=== PATIENT | female | born 1955 | race Caucasian/White ===

== ENCOUNTER → 2021-09-07 12:00 | Outpatient (CLI) | payer MEDICARE, SELFPAY | PROVIDERS: PCP Family Medicine; Visit Provider Specialist | DX: G47.09 Other insomnia (principal); G47.30 Sleep apnea, unspecified; R06.83 Snoring | CPT/HCPCS: G0399 ==

== ENCOUNTER 2025-02-18 07:59 | Day surgery (SDC) | payer MEDICARE, OTHER, SELFPAY ==
[2025-02-11 09:19] VITALS: BMI 31.4
--- NOTE | 2025-02-11 16:28 | EXP.HP ---
History of Present Illness *Admission Date: 02/18/25 *History of present illness: Mrs. Stern is a 69-year-old female who is here for diagnostic colonoscopy. Several months ago, she did develop increased bowel urgency and diarrhea with change in bowel habits. This improved some but did not resolve. She has had a lot of gassiness and bloating with some belching. Her PCR microbial panel was negative. Her pancreatic fecal elastase testing was normal at 627 mcg/g. She was given probiotic (Align) and FiberCon 1 tablet daily. She was also prescribed Xifaxan and dicyclomine. Xifaxan was cost prohibitive so she did take a round of doxycycline. None of this provided complete resolution. She did have a colonoscopy with ut in February 2019 that was normal. The patient also had a normal CAT scan of the abdomen and pelvis in March 2019. The examination is deemed medically necessary for diagnostic colonoscopy. The patient has been seen, interviewed and examined prior to the procedure by both myself and the anesthesia provider. [facility] Disclaimer: The information contained in this section may have been updated after the patient was seen, as this information can be updated by other users. Medical History Functional dyspepsia Irritable bowel syndrome with diarrhea GERD (gastroesophageal reflux disease) Surgical History No pertinent past surgical history Family History Mother Breast cancer Social History (Updated 02/18/25 @ 09:20 by Saeid Mann CRNA) Smoking Status: Never smoker alcohol intake: current alcohol intake frequency: holidays/special occasions only substance use type: denies use current occupational status: retired Travel in the last 8 weeks?: Inside the [place] household members: spouse housing: house Have you lived/traveled outside [place] in past 30 days?: No Contact w/someone who lives/traveled outside [place] past 30 days?: No Exposure to someone with infectious disease in past 14 days?: No Do you have a fever (greater than 100.4 F or 38 C)?: No Have you tested positive for COVID-19?: No Exposed to someone with COVID-19 in past 14 days?: No Do you have a sore throat?: No Do you have a cough?: No Do you have any weakness?: No Are you experiencing any nausea/vomitting?: No Do you have any diarrhea?: No Are you experiencing any unusual bleeding?: No Do you have any muscle aches/pain?: No Do you have any abdominal pain?: No Are you experiencing loss of taste or smell?: No Other Medical History Have you received the Pneumonia Vaccine: Yes Review of Systems Review of Systems Review of systems (narrative): Negative *Cardiovascular Comments: Negative *Gastrointestinal Comments: Negative *Genitourinary Comments: Negative *Musculoskeletal Comments: Negative *Neurologic Comments: Negative Meds Home Medications and Allergies Home Medications ?Medication ?Instructions ?Recorded ?Confirmed ?Type calcium polycarbophil 625 mg 1,250 mg PO DAILY 08/09/21 02/18/25 History tablet (FiberCon) omeprazole 40 mg capsule,delayed 40 mg PO DAILY 08/09/21 02/18/25 History release pravastatin 40 mg tablet 40 mg PO DAILY 03/04/24 02/18/25 History raloxifene 60 mg tablet (Evista) 60 mg PO DAILY 03/04/24 02/18/25 History dicyclomine 10 mg capsule 10 mg PO QID PRN abd pain/urgency 09/09/24 02/18/25 Rx #120 caps loratadine 10 mg tablet 10 mg PO DAILY 09/09/24 02/18/25 History cholecalciferol (vitamin D3) 25 25 mcg PO DAILY 11/03/24 02/18/25 History mcg (1,000 unit) capsule escitalopram oxalate 5 mg tablet 10 mg PO DAILY 11/03/24 02/18/25 History sodium,potassium,mag sulfates 17.5 See Rx Instructions PO .COMPLEX 02/06/25 02/11/25 Rx gram-3.13 gram-1.6 gram oral soln #354 mL (Suprep Bowel Prep Kit) New Prescriptions to Start Prescriptions: Allergies Allergy/AdvReac Type Severity Reaction Status Date / Time No Known Allergies Allergy Verified 02/18/25 08:37 Exam Data for Last 24 hours I & O for Last 24 hours: Intake & Output 02/08/25 02/09/25 02/10/25 02/11/25 23:59 23:59 23:59 23:59 Weight 195 lb *Routine HEENT Exam Head: Present normocephalic Eye: Present EOMI and PERRL ENT: Present mucous membranes moist *Routine Neck Exam Neck: Present supple *Routine Respiratory Exam Respiratory: Present CTA bilaterally *Routine Cardiovascular Exam Cardiovascular: Present RRR *Routine Abdominal Exam Abdominal: Present soft and normoactive bowel sounds; Absent tenderness *Routine Rectal Exam Rectal:: deferred *Routine Genitalia Exam Genitalia:: deferred *Routine Extremities Exam Extremities: Absent cyanosis, clubbing or edema *Routine Skin Exam Skin: Present warm; Absent rash *Routine Neurological Exam Neurological: Present alert and oriented X3 Assessment and Plan *Assessment and plan (1) Change in bowel function: Status: Acute Category: Medical Code(s): R19.8 - Other specified symptoms and signs involving the digestive system and abdomen (2) Fecal urgency: Status: Acute Category: Medical Code(s): R15.2 - Fecal urgency (3) Diarrhea: Status: Acute Category: Medical Code(s): R19.7 - Diarrhea, unspecified (4) Bloating: Status: Acute Category: Medical Code(s): R14.0 - Abdominal distension (gaseous) Plan A/P: 1. Change in bowel habits with diarrhea, fecal urgency and bloating is the preprocedural diagnosis. The patient will be anesthetized/sedated using MAC sedation. The patient has been seen and examined. Cardiac and lung assessment prior to the examination is stable. Proceed with planned diagnostic colonoscopy.
--- NOTE | 2025-02-18 07:02 | HMH.PROCNOTE ---
[facility] Procedure Note Date: 02/18/25 Time: 09:42 Procedure Note:: Colonoscopy Procedure Report: Colonoscopy with cold snare polypectomy and cold biopsies Endoscopist: Johnathan Palacio II, MD Referring physician: Willa Mccarty MD Date of Procedure: February 18, 2025 Equipment: Olympus [id number] adult colonoscope Sedation: MAC sedation Indication: Mrs. Stern is a 69-year-old female who is here for diagnostic colonoscopy. Several months ago, she did develop increased bowel urgency and diarrhea with change in bowel habits. This improved some but did not resolve. She has had a lot of gassiness and bloating with some belching. Her PCR microbial panel was negative. Her pancreatic fecal elastase testing was normal at 627 mcg/g. She was given probiotic (Align) and FiberCon 1 tablet daily. She was also prescribed Xifaxan and dicyclomine. Xifaxan was cost prohibitive so she did take a round of doxycycline. None of this provided complete resolution. She did increase the FiberCon to 2 tablets by mouth twice daily and has had some improvement. She continues to have a lot of gassiness, fullness and bloating. She also has some nausea. She has incomplete defecation. She reports no rectal bleeding but does note a little bit of mucus. She reports no fecal incontinence. She did have a colonoscopy with ia in February 2019 that was normal. The patient also had a normal CAT scan of the abdomen and pelvis in March 2019. The examination is deemed medically necessary for diagnostic colonoscopy. Procedure: Prior to the procedure, a history and physical exam was performed, and patient's medications and allergies were reviewed. The risks, benefits and alternatives of the sedation and procedure were discussed with the patient. All questions were answered and informed consent was obtained. The patient was brought to the procedure room. Patient identification and proposed procedure were verified by the physician and the nurse. The patient was placed in a left lateral decubitus position and the scope was passed under direct vision. Throughout the procedure, the patient's blood pressure, pulse, and oxygen saturations were monitored continuously. The colonoscopy was accomplished without difficulty. The patient tolerated the procedure well. Findings: On digital rectal examination there was normal rectal tone. There were no external hemorrhoids. The colonoscope was introduced through the anal canal to the rectum and advanced to the cecum. The ileocecal valve and appendiceal orifice were identified. The scope was advanced a short distance into the ileum which appeared grossly normal. The scope was then withdrawn into the colon. There were 3 diminutive colon polyps (cecum x 2 (3 and 3 mm) and transverse x 1 (4 mm)). These were all removed via cold snare polypectomy. Random biopsies were taken from the right colon to rule out microscopic colitis. The remaining cecum, ascending, transverse, descending, sigmoid and rectum were grossly normal. There were no other mucosal abnormalities identified. Upon retroflexion within the rectum there were grade 1-2 internal hemorrhoids. The preparation was excellent throughout with [place] Preparation Score of 9. The cecal time was 12 minutes. Impression: 1. Diminutive colonic polyps x 3 2. Grade 1-2 internal hemorrhoids Plan: I will follow-up the polyp histology and recommend repeat screening/surveillance colonoscopy again in 5 to 7 years based upon the pathology. I will follow-up the random biopsies to rule out microscopic colitis. I would continue to FiberCon 2 tablets twice daily. If the biopsies are normal, I would consider adding a digestive enzyme (i.e. Creon) which may help some with her gas and loose bowel movements. I would also consider low FODMAP diet and/or Fodzyme.
[2025-02-18 08:42] VITALS: BP 135/83; PULSE 70; RESP 18; TEMP 36.1; O2SAT 97
[2025-02-18] MEDS: LACTATED RINGERS 1000ML 1,000 ML 50 ML IV (08:49)
--- NOTE | 2025-02-18 09:19 | P.PNANES_ITS ---
[facility] Disclaimer: The information contained in this section may have been updated after the patient was seen, as this information can be updated by other users. Medical History Functional dyspepsia Irritable bowel syndrome with diarrhea GERD (gastroesophageal reflux disease) Surgical History No pertinent past surgical history Family History Mother Breast cancer Social History Smoking Status: Never smoker alcohol intake: current alcohol intake frequency: holidays/special occasions only substance use type: denies use current occupational status: retired Travel in the last 8 weeks?: Inside the [place] household members: spouse housing: house [facility] Anesthesia Checklist Patient Identification Patient Identification: Arm Band and Verbal (Name & ) Structural Data Admitted From: Home Planned Operative Procedure/s: Colonoscopy Consent for Planned Operative Procedure(s) Verified: Yes Verified Documents: Surgical Consent NPO Status Verified Time NPO: 00:00 Chart Verification Results Verified: None Additional verifications Anesthesia Reactions: No Airway Assessment Mallampati Score:: Class II C-Spine Mobility Assessed: Yes TMJ Mobility Assessed: Yes Dentition: Good Dentition Neurological Assessment Level of Consciousness: Awake, Alert and Appropriate Hx Seizures: No Numbness or tingling in extremities: No Anesthesia Plan Anesthesia Risk discussed: Yes Anesthesia Plan: Verified ASA Class: II Anesthesia Type: MAC
[2025-02-18 09:44] VITALS: BP 110/64; PULSE 64; RESP 16; TEMP 36.1; O2SAT 97
[2025-02-18 09:54] VITALS: BP 115/67; PULSE 60; RESP 18; TEMP 36.1; O2SAT 99
[2025-02-18 10:04] VITALS: BP 124/75; PULSE 64; RESP 16; TEMP 36.1; O2SAT 99
[2025-02-18 10:14] VITALS: BP 136/70; PULSE 62; RESP 16; TEMP 36.1; O2SAT 99
== END 2025-02-18 10:14 | disposition home or self-care (01) ==
PROVIDERS: PCP Family Medicine; Visit Provider Internal Medicine Gastroenterology
PROC: 0DJD8ZZ Inspection of Lower Intestinal Tract, Via Natural or Artificial Opening Endoscopic (ICD-10-PCS; CPT 45378; principal; 2025-02-18 09:30)
DX: D12.0 Benign neoplasm of cecum (principal); K64.0 First degree hemorrhoids; K64.1 Second degree hemorrhoids; K63.5 Polyp of colon; K58.0 Irritable bowel syndrome with diarrhea; K21.9 Gastro-esophageal reflux disease without esophagitis
CPT/HCPCS: 45380; 45385; 88305; J2003; J2704; J7120